=== PATIENT | male | born 1940 | race Hispanic/Latino ===

== ENCOUNTER 2017-06-14 12:19 | Emergency (ER) | payer MEDICARE ==
[2017-06-14] MEDS ORDERED: TYLENOL PO ONE (13:17)
--- NOTE | 2017-06-14 13:29 | Emergency Department Report ---
ED General Adult HPI - General Chief complaint: Headache Stated complaint: HEADACHE Time Seen by Provider: 06/14/17 13:12 Source: EMS Mode of arrival: Stretcher Limitations: No Limitations - History of Present Illness Initial comments: pt from [facility] history of psychosis and dementia, he was altered this morning on the shift they called EMS for complaints of possible hypotension and a headache. Patient arrives awake and alert and verbal following commands does appear to be at baseline mental status which is dementia with psychosis. His eyes are open and he is verbal, nontoxic and afebrile. He is here with no longer having a headache for evaluation of a possible headache earlier with possible low blood pressure. However pressure is now within normal limits.afeb no stiff neck, no rash, follows commands patient denies complaints at this time no headache no chest pain no abdominal pain no black or bloody stool no syncope no nausea vomiting diarrhea. -: unknown Severity scale (0 -10): 0 - Related Data Allergies Allergy/AdvReac Type Severity Reaction Status Date / Time No Known Allergies Allergy Unverified 06/14/17 12:56 ED Review of Systems ROS: Stated complaint: HEADACHE Other details as noted in HPI Comment: Unobtainable due to pts medical conditions Constitutional: denies: chills, fever, malaise, weakness Respiratory: denies: orthopnea, shortness of breath, SOB with exertion, SOB at rest, stridor, wheezing Cardiovascular: denies: chest pain, palpitations, edema, syncope ED Past Medical Hx - Past Medical History Previous Medical History?: Yes Hx Dementia: Yes Additional medical history: psychosis - Surgical History Past Surgical History?: No - Social History Smoking Status: Never Smoker Substance Use Type: None ED Physical Exam - General Limitations: No Limitations General appearance: alert, in no apparent distress - Head Head exam: Present: atraumatic, normocephalic - Eye Eye exam: Present: PERRL, EOMI - ENT ENT exam: Present: normal exam - Neck Neck exam: Present: normal inspection. Absent: tenderness, meningismus - Respiratory Respiratory exam: Present: normal lung sounds bilaterally, stridor. Absent: respiratory distress, wheezes, rales, rhonchi, chest wall tenderness - Cardiovascular Cardiovascular Exam: Present: regular rate, normal rhythm, normal heart sounds. Absent: systolic murmur, diastolic murmur, rubs, gallop - GI/Abdominal GI/Abdominal exam: Present: soft. Absent: distended, tenderness, guarding, rebound, mass, pulsatile mass - Extremities Exam Extremities exam: Present: normal inspection, normal capillary refill. Absent: tenderness, pedal edema, joint swelling, calf tenderness - Back Exam Back exam: Present: normal inspection, full ROM. Absent: tenderness, CVA tenderness (R), CVA tenderness (L), paraspinal tenderness, vertebral tenderness , rash noted - Neurological Exam Neurological exam: Present: alert, CN II-XII intact, normal gait. Absent: motor sensory deficit - Skin Skin exam: Present: warm. Absent: cyanosis, diaphoretic, erythema, urticaria, vesicles, petechiae, pallor, ecchymosis ED Course Vital Signs 06/14/17 12:45 Temperature 97.8 F Pulse Rate 60 Respiratory 20 Rate Blood Pressure 116/58 Blood Pressure 116/58 [Left] O2 Sat by Pulse 100 Oximetry ED Medical Decision Making - Lab Data Result diagrams: 06/14/17 13:27 06/14/17 13:27 - Radiology Data Radiology results: report reviewed - Medical Decision Making Headache resolved in the ED CT shows nap. Patient is poor historian his baseline mental status supple neck afebrile no evidence of focal neuro deficit is appreciated. Headache does appear to be tension related. CT shows no evidence of stroke or bleed. Patient is now normal baseline mental status with nonfocal neuro exam he is a foster for outpatient follow-up. He also was felt to have some postural hypotension however he never exhibited hypotension at the scene per EMS he had normal blood pressure 1 got there. He also has normal blood pressure now unclear if the BB. He was asked. At the center. He does not appear to be severely dehydrated and he is not of a UTI remainder of the workup was essentially unremarkable. Patient has no evidence of an acute emergent process of further workup or admission noted at this time. He is therefore still for outpatient follow-up Critical care attestation.: If time is entered above; I have spent that time in minutes in the direct care of this critically ill patient, excluding procedure time. ED Disposition Clinical Impression: Tension headache, Dementia, Cephalgia Disposition: [id number] PSY HOSP/PSY UNIT Is pt being admited?: No Condition: Stable Instructions: Tension Headache (ED), Acute Headache (ED) Additional Instructions: Call 911 or return immediately if new alarming symptoms see her regular doctor in 2 days Tylenol [id number] as needed as directed for headache Time of Disposition: 18:11
[2017-06-14 13:53] LABS: Basophils # (Auto) 0.1 K/mm3 (0.0-0.1); Eosinophils # (Auto) 0.1 K/mm3 (0.0-0.4); Eosinophils % (Auto) 2.1 % (0.0-4.3); Hematocrit 37.3 % (35.5-45.6); Hemoglobin 12.3 gm/dl (11.8-15.2); Lymphocytes # (Auto) 1.1 K/mm3 (1.2-5.4); Lymphocytes % (Auto) 21.3 % (13.4-35.0); Mean Corpuscular HGB Conc 33 % (32-34); Mean Corpuscular Hemoglobin 29 pg (28-32); Mean Corpuscular Volume 89 fl (84-94); Monocytes # (Auto) 0.4 K/mm3 (0.0-0.8); Platelet Count 195 K/mm3 (140-440); Red Blood Count 4.19 M/mm3 (3.65-5.03); Red Cell Distribution Width 15.2 % (13.2-15.2)
--- NOTE | 2017-06-14 13:56 | Cat Scan Report ---
CT HEAD WITHOUT CONTRAST: 06/14/17 12:19:00 CLINICAL: Headache. TECHNIQUE: 2.5-mm noncontrast scans. COMPARISON:None FINDINGS: The ventricles and sulci are normal for age. No abnormal density. No mass or mass effect. No hemorrhage, edema or extra-axial collection. Evidence of previous sinus surgery and bilateral frontal, ethmoid and maxillary sinus mucoperiosteal thickening. No air-fluid levels in the sinuses. Normal orbits and soft tissues. The calvarium and skull base are intact. IMPRESSION: Chronic sinusitis and otherwise negative.
[2017-06-14 14:01] LABS: Alanine Aminotransferase 19 units/L (7-56); Albumin 3.7 g/dL (3.9-5); BUN/Creatinine Ratio 35; Blood Urea Nitrogen 21 mg/dL (9-20); Calcium 8.7 mg/dL (8.4-10.2); Hemolysis Index 3
[2017-06-14 16:49] LABS: Bilirubin,Urine NEG (Negative); Blood,Urine NEG (Negative); Color,Urine Straw (Yellow); Nitrite,Urine NEG (Negative); Protein,Urine <15 mg/dL mg/dL (Negative); Urobilinogen,Urine < 2.0 mg/dL (<2.0)
[2017-06-14 18:55] VITALS: BP 136/57
== END 2017-06-14 20:35 ==
LOC: ED 12:19
DX: G44.209 Tension-type headache, unspecified, not intractable (principal); F03.90 Unspecified dementia, unspecified severity, without behavioral disturbance, psychotic disturbance, mood disturbance, and anxiety; R51 Headache; F29 Unspecified psychosis not due to a substance or known physiological condition
CPT/HCPCS: 36415; 70450; 80053; 81001; 85025; 87086